=== PATIENT | female | born 1950 | race Caucasian/White ===

== ENCOUNTER 2017-11-15 12:36 | Day surgery (SDC) | payer MEDICARE, BC ==
[2017-11-15 12:49] VITALS: BP 137/74; PULSE 77; RESP 20; TEMP 97.7; O2SAT 99
[2017-11-15] MEDS ORDERED: COMPTAB PO (12:55)
[2017-11-15] MEDS ORDERED: XELO500T PO (12:55)
[2017-11-15] MEDS ORDERED: DOCU50CA5 PO (12:55)
[2017-11-15] MEDS ORDERED: CETI-1 PO (12:55)
[2017-11-15] MEDS ORDERED: BIOTCAP PO (12:55)
[2017-11-15] MEDS ORDERED: FAMO1TAB37 PO (12:55)
[2017-11-15] MEDS ORDERED: IOHEXOL 350 MG/ML 50 ML BTL (for RAD DIAG) OTHER ONE (13:45)
--- NOTE | 2017-11-15 14:02 | PD.RAD ---
Post Procedure Progress Note Pre Procedure Diagnosis: (1) Encounter for central line care Post Procedure Diagnosis: (1) Encounter for central line care Procedure Date: Nov 15, 2017 Supervising Radiologist: Juice Montes JR Proceduralist/Assist: RT Teresa(R)(CV) Anesthesia: Other Plan of Activity Patient to Unit: ROPU Patient Condition: Good Additional Comments: Evaluation of left port shows fibrin sheath around the tip. The tip is in the brachiocephalic vein. Ok to use port. Blood return will be limited. Can consider fibrin sheath stripping. See PACS Report for procedural detail/treatment Jr. Simon,Juice Smith MD Nov 15, 2017 14:02
--- NOTE | 2017-11-15 14:12 | RADRPT ---
EXAM DATE/TIME: 11/15/2017 13:27 [place] COMPARISON: No previous studies available for comparison. INDICATIONS : Patient with history of metastatic breast adenocarcinoma in need of port evaluation. [place] Unable to withdraw blood.. MEDICAL HISTORY : Thyroid nodules, Osteopenia, Left breast invasive ductal carcinoma, Right breast biopsy benign, Liver mets SURGICAL HISTORY : Colonoscopy, Bilateral breast biopsy, Right cervical lymph node excisional biopsy ENCOUNTER: Initial ACUITY: 1 day PAIN SCORE: 0/10 FLUORO TIME: 0.5 minutes IMAGE SERIES: 2 CONTRAST: 10 cc Omnipaque (iohexol) 350 MEDICATION(S): 1.) 500 units Heparin IV PROCEDURE : 1. Access of Adztzp-t-gryd. 2. Port patency injection. The risks, benefits and alternatives to the procedure were explained and verbal and written consent w as obtained. The patient was placed supine. The port was prepped in sterile fashion. Full sterile t echnique was used, including cap, mask, sterile gloves and gown, and a large sterile sheet. Hand hyg iene and 2% chlorhexidine prep was utilized per protocol for cutaneous antisepsis with appropriate dr y time for site. The previously placed port was accessed and positive contrast was injected for evaluation. Injection demonstrates the tip of the Port-A-Cath in the left brachiocephalic vein. There is a fibrin sheath i nvolving the distal catheter. No leak from the catheter. CONCLUSION: 1. The port is in good position. A fibrin sheath prevents the blood aspiration from the port. Conside ration could be made to fibrin sheath stripping of the port to return this capability to the port. Juice Montes Jr., MD on November 15, 2017 at 14:09 Board Certified Radiologist. This report was verified electronically.
== END 2017-11-15 14:05 | disposition home or self-care (01) ==
LOC: HROP 12:36 → HRIP 12:39 → HROP 14:05
PROVIDERS: ATTEND Internal Medicine Hematology & Oncology
DX: T82.898A Other specified complication of vascular prosthetic devices, implants and grafts, initial encounter (principal); C50.912 Malignant neoplasm of unspecified site of left female breast; Z17.0 Estrogen receptor positive status [ER+]; C78.7 Secondary malignant neoplasm of liver and intrahepatic bile duct; C79.51 Secondary malignant neoplasm of bone; M85.80 Other specified disorders of bone density and structure, unspecified site
CPT/HCPCS: 36598; J1642; Q9967